=== PATIENT | female | born 2000 | race African-American/Black ===

== ENCOUNTER 2020-11-04 10:37 | Outpatient (CLI) | payer OTHER ==
[2020-11-04 18:01] LABS: SARS-CoV-2 PCR by NAA Not Detected (NotDetected)
== END 2020-11-04 10:38 | disposition home or self-care (01) ==
LOC: CSHLAB 10:37
PROVIDERS: ATTEND Family Medicine
DX: Z20.822 Contact with and (suspected) exposure to COVID-19 (principal)
CPT/HCPCS: 87635; U0003; U0005

== ENCOUNTER 2020-11-08 14:37 | Inpatient (IN) | payer OTHER ==
[2020-11-09 00:38] VITALS: BMI 26.7
[2020-11-09] MEDS ORDERED: Lidocaine 1% (PF) 30 ML VIAL SC PRN (01:10)
[2020-11-09] MEDS ORDERED: Ibuprofen 800 MG TAB PO PRN (01:10)
[2020-11-09] MEDS ORDERED: Promethazine HCl 25 MG/ML VIAL IM PRN (01:10)
[2020-11-09] MEDS ORDERED: Diphenoxylate HCl/Atropine Tablet PO PRN ×2 (01:10)
[2020-11-09] MEDS ORDERED: Butorphanol Tartrate 1 MG/ML VIAL SLOW IVP PRN (01:10)
[2020-11-09] MEDS ORDERED: Carboprost 250 MCG/ML AMP IM PRN (01:10)
[2020-11-09] MEDS ORDERED: hydrALAZINE 20 MG/ML VIAL SLOW IVP PRN ×2 (01:10→09:25)
[2020-11-09] MEDS ORDERED: Misoprostol 200 MCG TAB RC PRN (01:10)
[2020-11-09] MEDS ORDERED: Methylergonovine 0.2 MG/ML VIAL IM PRN (01:10)
[2020-11-09] MEDS ORDERED: HYDROcodone/Acetaminophen 5/325 mg Tablet PO PRN ×4 (01:10→09:25)
[2020-11-09] MEDS ORDERED: NS w/ Oxytocin 30 units 500 ML IV SCH ×3 (01:10→10:00)
[2020-11-09] MEDS ORDERED: Acetaminophen/Codeine 30-300mg Tablet PO PRN ×2 (01:10)
[2020-11-09] MEDS ORDERED: Ondansetron PF 4 MG/2 ML Vial IVP PRN ×2 (01:10→09:25)
[2020-11-09] MEDS ORDERED: Acetaminophen 500 MG TAB PO PRN (01:10)
[2020-11-09] MEDS ORDERED: Lactated Ringer's 1,000 ML IV SCH ×2 (01:10)
[2020-11-09] MEDS ORDERED: NS w/ Oxytocin 30 units 500 ML IVPB SCH (01:10)
[2020-11-09] MEDS ORDERED: Misoprostol 100 MCG TAB ONE (01:20)
[2020-11-09 01:24] LABS: Hemoglobin 9.9 g/dL (12.0-15.5); Mean Corpuscular HGB CONC 34.3 g/dL (32.0-36.0); Mean Corpuscular Hemoglobin 30.9 pg (27.0-33.0); Mean Corpuscular Volume 90.3 fl (81.6-98.3); Mean Platelet Volume 12.1 fl (7.4-10.4); Platelet Count 258 10x3/uL (150-450); RBC Distribution Width 13.2 % (11.5-14.5); White Blood Cell (WBC) Count 8.8 10x3/uL (3.5-10.5)
[2020-11-09 01:56] LABS: Syphilis Antibody Nonreactive (Nonreactive); Syphilis Antibody Index 0.07 S/CO (<1.00 Non-Reactive)
[2020-11-09 01:58] LABS: Hep B Surf Ag Non-Reactive S/CO (NonReactive)
[2020-11-09 02:13] LABS: HBSAg Index 0.19 S/CO (0-0.99)
[2020-11-09] MEDS ORDERED: Butorphanol Tartrate 1 MG/ML VIAL ONE (02:27)
[2020-11-09] MEDS ORDERED: Fentanyl 4 mcg/Bup 0.1% Cadd 100 ML ONE (04:46)
[2020-11-09] MEDS ORDERED: Bupivacaine 0.25% HCL 30 ML VIAL ONE (07:00)
[2020-11-09] MEDS ORDERED: NS w/ Oxytocin 30 units 500 ML ONE (07:08)
[2020-11-09] MEDS ORDERED: Bisacodyl 10 MG SUPP PR PRN (09:25)
[2020-11-09] MEDS ORDERED: Benzocaine-Menthol 82.5 ML CAN TOP PRN (09:25)
[2020-11-09] MEDS ORDERED: diphenhydrAMINE 25 MG CAP PO PRN (09:25)
[2020-11-09] MEDS ORDERED: Adacel (T-DAP) 0.5 ML SYRINGE IM ONE (09:25)
[2020-11-09] MEDS ORDERED: Milk Of Magnesia 30 ML UDCUP PO PRN (09:25)
[2020-11-09] MEDS ORDERED: Lanolin Ointment 7 GM TUBE TOP PRN (09:25)
[2020-11-09] MEDS ORDERED: Prenatal Vitamin 1 TAB PO SCH (10:00)
[2020-11-09] MEDS ORDERED: Docusate Calcium (SURFAK) 240 MG CAP PO SCH (10:00)
[2020-11-09] MEDS: Ibuprofen 800 MG TAB PO SCH ×2 (12:22→19:36)
[2020-11-09] MEDS: Ferrous Sulfate 325 MG TAB PO SCH (18:11)
[2020-11-09] MEDS: Docusate Calcium (SURFAK) 240 MG CAP PO SCH (21:59)
[2020-11-10] MEDS: Ibuprofen 800 MG TAB PO SCH ×2 (05:49→11:51)
[2020-11-10 07:39] VITALS: BP 108/58; TEMP 98.3
[2020-11-10] MEDS: Docusate Calcium (SURFAK) 240 MG CAP PO SCH (08:48)
[2020-11-10] MEDS: Ferrous Sulfate 325 MG TAB PO SCH (08:49)
[2020-11-10] MEDS ORDERED: Prenatal Vitamin 1 TAB PO SCH (09:00)
== END 2020-11-10 15:20 | disposition home or self-care (01) | DRG 807 ==
LOC: EDSTATUS 21:59 → CSHLD 11-09 00:14 → UNDOADMIN 11-09 00:14 → CSHLD 11-09 01:07 → EEVIPCON 11-09 01:07 → CSHPP 11-09 12:18 → CSHLD 11-09 12:18
PROVIDERS: ADMIT Family Medicine; ATTEND Family Medicine
PROC: 10E0XZZ Delivery of Products of Conception, External Approach (ICD-10-PCS; principal; 2020-11-09)
PROC: 0KQM0ZZ Repair Perineum Muscle, Open Approach (ICD-10-PCS; 2020-11-09)
PROC: 3E0D7GC Introduction of Other Therapeutic Substance into Mouth and Pharynx, Via Natural or Artificial Opening (ICD-10-PCS; 2020-11-09)
DX: O69.81X0 Labor and delivery complicated by cord around neck, without compression, not applicable or unspecified (principal); Z37.0 Single live birth; Z3A.39 39 weeks gestation of pregnancy; Z23 Encounter for immunization; Z20.822 Contact with and (suspected) exposure to COVID-19; O70.1 Second degree perineal laceration during delivery
CPT/HCPCS: 36415; 51701; 85027; 86780; 86850; 86900; 86901; 87340; 90715; J0595; J2590; S0020

== ENCOUNTER 2023-09-26 19:00 | Inpatient (IN) | payer OTHER ==
[2023-09-26] MEDS ORDERED: Promethazine HCl 25 MG/ML VIAL IM PRN (22:11)
[2023-09-26] MEDS ORDERED: Acetaminophen 500 MG TAB PO PRN (22:11)
[2023-09-26] MEDS ORDERED: hydrALAZINE 20 MG/ML VIAL SLOW IVP PRN (22:11)
[2023-09-26] MEDS ORDERED: Lidocaine 1% (PF) 30 ML VIAL SC PRN (22:11)
[2023-09-26] MEDS ORDERED: Diphenoxylate HCl/Atropine Tablet PO PRN (22:11)
[2023-09-26] MEDS ORDERED: HYDROcodone/Acetaminophen 5/325 mg Tablet PO PRN (22:11)
[2023-09-26] MEDS ORDERED: Ondansetron PF 4 MG/2 ML Vial IVP PRN (22:11)
[2023-09-26] MEDS ORDERED: Tranexamic Acid 1,000 MG/10 ML VIAL IVP PRN (22:11)
[2023-09-26] MEDS ORDERED: Carboprost 250 MCG/ML AMP IM PRN (22:11)
[2023-09-26] MEDS ORDERED: Methylergonovine 0.2 MG/ML VIAL IM PRN (22:11)
[2023-09-26] MEDS ORDERED: Misoprostol 200 MCG TAB PR PRN (22:11)
[2023-09-26] MEDS ORDERED: fentaNYL 50 mcg/mL 1 mL Vial SLOW IVP PRN (22:11)
[2023-09-26] MEDS ORDERED: Oxytocin 30 units/NS 500 ML 500 ML IV SCH ×2 (22:15)
[2023-09-26 22:22] VITALS: BMI 28.1
[2023-09-26] MEDS: Lactated Ringer's 1,000 ML IV SCH (22:22)
[2023-09-26] MEDS: Misoprostol 100 MCG TAB PO SCH (22:28)
[2023-09-26 22:30] LABS: Hematocrit 23.9 % (34.9-44.5); Hemoglobin 8.2 g/dL (12.0-15.5); Mean Corpuscular HGB CONC 34.3 g/dL (32.0-36.0); Mean Corpuscular Volume 87.5 fl (81.6-98.3); Mean Platelet Volume 12.7 fl (7.4-10.4); Platelet Count 187 10x3/uL (150-450); RBC Distribution Width 15.2 % (11.5-14.5); Red Blood Cell (RBC) Count 2.73 10x6/uL (3.90-5.03); White Blood Cell (WBC) Count 8.4 10x3/uL (3.5-10.5)
[2023-09-26 23:26] LABS: HBSAg Index 0.22 S/CO (0-0.99); Hep B Surf Ag - L&D Non-Reactive S/CO (NonReactive)
[2023-09-26 23:28] LABS: Syphilis Antibody Nonreactive (Nonreactive); Syphilis Antibody Index 0.16 S/CO (<1.00 Non-Reactive)
[2023-09-27] MEDS ORDERED: Ondansetron PF 4 MG/2 ML Vial IVP PRN ×2 (04:11→15:24)
[2023-09-27] MEDS ORDERED: Moisturizing Cream (Eucerin) 113 GM JAR TOP PRN (04:11)
[2023-09-27] MEDS ORDERED: ePHEDrine Sulfate 50 MG/10 ML VIAL SLOW IVP PRN (04:11)
[2023-09-27] MEDS ORDERED: Promethazine HCl 25 MG/ML VIAL IM PRN ×2 (04:11→15:24)
[2023-09-27] MEDS ORDERED: Naloxone HCl 0.4 mg/ml Vial IVP PRN ×2 (04:11)
[2023-09-27] MEDS ORDERED: Lactated Ringer's 500 ML IV PRN (04:11)
[2023-09-27] MEDS ORDERED: diphenhydrAMINE 50 MG/ML VIAL IVP PRN (04:11)
[2023-09-27] MEDS ORDERED: Acetaminophen 325 MG TAB PO PRN (04:11)
[2023-09-27] MEDS ORDERED: Communication Order-Pharmacy FS SCH (04:15)
[2023-09-27] MEDS ORDERED: fentaNYL 2 mcg/Ropivacaine 0.2% Epidural 100 ML CADD EPIDURAL SCH (04:15)
[2023-09-27] MEDS: fentaNYL/Ropivacaine Epidural 100 ML ONE (04:37)
[2023-09-27] MEDS: Oxytocin 30 units/NS 500 ML 500 ML IV SCH (05:47)
[2023-09-27] MEDS ORDERED: Bupivacaine 0.25% HCL 30 ML VIAL ONE (06:00)
[2023-09-27] MEDS: Ibuprofen 800 MG TAB PO PRN (14:50)
[2023-09-27] MEDS ORDERED: Bisacodyl 10 MG SUPP PR PRN (15:24)
[2023-09-27] MEDS ORDERED: Milk Of Magnesia 30 ML UDCUP PO PRN (15:24)
[2023-09-27] MEDS ORDERED: hydrALAZINE 20 MG/ML VIAL SLOW IVP PRN (15:24)
[2023-09-27] MEDS ORDERED: diphenhydrAMINE 25 MG CAP PO PRN (15:24)
[2023-09-27] MEDS ORDERED: Benzocaine-Menthol 82.5 ML CAN TOP PRN (16:40)
[2023-09-27] MEDS: Ibuprofen 800 MG TAB PO SCH ×2 (17:19→21:26)
[2023-09-27] MEDS: Ferrous Sulfate 325 MG TAB PO SCH (18:23)
[2023-09-27] MEDS: HYDROcodone/Acetaminophen 5/325 mg Tablet PO PRN (19:31)
[2023-09-27] MEDS: Docusate 100 MG CAP PO SCH (21:26)
[2023-09-28] MEDS: Prenatal Vitamin 1 TAB PO SCH (08:42)
[2023-09-28] MEDS: Boostrix 0.5 ML (Tdap) VIAL (>/=7 yrs of age) IM ONE (09:26)
[2023-09-28 11:10] VITALS: BP 110/59; TEMP 98.4
== END 2023-09-28 16:25 | disposition home or self-care (01) | DRG 807 ==
LOC: CSHLD 21:24 → CSHPP 09-27 15:12
PROVIDERS: ADMIT Family Medicine; ATTEND Family Medicine
PROC: 10E0XZZ Delivery of Products of Conception, External Approach (ICD-10-PCS; principal; 2023-09-27)
PROC: 10907ZC Drainage of Amniotic Fluid, Therapeutic from Products of Conception, Via Natural or Artificial Opening (ICD-10-PCS; 2023-09-27)
PROC: 3E0P7VZ Introduction of Hormone into Female Reproductive, Via Natural or Artificial Opening (ICD-10-PCS; 2023-09-27)
DX: O99.02 Anemia complicating childbirth (principal); Z37.0 Single live birth; Z3A.39 39 weeks gestation of pregnancy; D64.9 Anemia, unspecified
CPT/HCPCS: 51702; 85027; 86780; 86850; 86900; 86901; 87340; J0665; J2590; J7120